=== PATIENT | female | born 1950 | race Two or more races ===

== ENCOUNTER → 2024-05-21 | Outpatient (CLI) | payer OTHER, MEDICAID, SELFPAY ==
--- NOTE | 2024-05-21 14:25 | EKG_ITS ---
[facility] Test Date: 2024-05-21 Pat Name: ROSE BOSS Department: Room: - Gender: Female Medication Coordinator: ANA LILIA : 1950 Requested By: Diego Grey Order Number: [id number] Reading MD: Diego Grey Measurements Intervals Benge Rate: 62 P: 47 ID: [id number] QRS: 46 QRSD: 82 T: 65 QT: 389 QTc: 395 Interpretive Statements SINUS RHYTHM No previous ECG available for comparison /[id number]/[id number]
== END | disposition home or self-care (01) ==
PROVIDERS: Referring Provider Ophthalmology; Visit Provider Ophthalmology
DX: Z01.818 Encounter for other preprocedural examination (principal)
CPT/HCPCS: 93005

== ENCOUNTER → 2024-05-22 | Outpatient (CLI) | payer OTHER, MEDICAID, SELFPAY ==
[2024-05-22 10:11] LABS: Glucose,Fasting 97 mg/dL (74-106)
== END | disposition home or self-care (01) ==
PROVIDERS: PCP Family Medicine; Referring Provider Ophthalmology; Visit Provider Ophthalmology
DX: Z01.818 Encounter for other preprocedural examination (principal)
CPT/HCPCS: 36415; 82947

== ENCOUNTER → 2024-07-02 | Outpatient (CLI) | payer MEDICARE, MEDICAID, SELFPAY ==
--- NOTE | 2024-07-02 11:15 | XR_ITS ---
Examination: Screening digital mammography, bilateral Computer aided detection 3-D breast Tomosynthesis, bilateral Date and time of exam: July 02, 2024 1103 hours Compared to mammograms dating to June 10, 2021 Indication: Screening Technique: Nonmagnified MLO, CC views of the breasts to been obtained, reconstructed from 3-D Tomosynthesis images. R2 computer aided detection program utilized for evaluation of suspicious masses and/or abnormal calcifications. 3-D Tomosynthesis images obtained. Findings: The breasts are heterogeneously dense, which may obscure small masses 8 mm nodule inner slightly upper left breast anterior depth partially indistinct margins Benign calcifications Impression: BI-RADS Category 0: Incomplete: Need additional imaging evaluation 8 mm nodule inner slightly upper left breast anterior depth, recommend follow-up spot tomographic views of this nodule as well as left breast sonography to complete the workup
== END | disposition home or self-care (01) ==
LOC: CDIM 10:53
PROVIDERS: Referring Provider Family Medicine; Visit Provider Family Medicine
DX: Z12.31 Encounter for screening mammogram for malignant neoplasm of breast (principal); N63.22 Unspecified lump in the left breast, upper inner quadrant
CPT/HCPCS: 77063; 77067

== ENCOUNTER → 2024-08-07 | Outpatient (CLI) | payer MEDICARE, MEDICAID, SELFPAY ==
--- NOTE | 2024-08-07 08:00 | XR_ITS ---
Examination: Breast ultrasound, unilateral, left complete Date and time of exam: August 07, 2024 0816 hours INDICATIONS: Mammogram July 02, 2024 8 mm nodule inner upper left breast anterior depth Technique: Real-time hussein scale ultrasonographic imaging performed left breast including all 4 quadrants as well as nipple retroareolar and axillary region. Findings: 8:00 oval mass circumscribed 5 x 5 mm 10:00 cyst 3 x 3 mm IMPRESSION: BI-RADS Category 3: Probably benign findings One additional 6 month left breast sonogram is needed to document stability of 8:00 nodule described above
--- NOTE | 2024-08-07 08:30 | XR_ITS ---
Examination: Diagnostic digital mammography, unilateral, left Computer aided detection 3-D breast Tomosynthesis, unilateral Date and time of exam: August 07, 2024 0837 hours INDICATIONS: Mammogram July 02, 2024 8mm nodule upper left breast anterior depth Technique: Nonmagnified MLO, CC views of the left breast have been obtained, reconstructed from 3-D Tomosynthesis images. R2 computer aided detection program utilized for evaluation of suspicious masses and/or abnormal calcifications. 3-D Tomosynthesis images obtained. Findings: The breast is heterogeneously dense, which may obscure small masses Focal asymmetry remains on the spot compression MLO view upper left breast Impression: BI-RADS category : Probably benign findings One additional 6 month left mammogram follow-up is needed
== END | disposition home or self-care (01) ==
LOC: CDIM 08:03
PROVIDERS: PCP Family Medicine; Referring Provider Family Medicine; Visit Provider Family Medicine
DX: R92.8 Other abnormal and inconclusive findings on diagnostic imaging of breast (principal); N63.23 Unspecified lump in the left breast, lower outer quadrant
CPT/HCPCS: 76641; 77061; 77065; G0279

== ENCOUNTER → 2024-11-06 | Outpatient (CLI) | payer MEDICARE, MEDICAID, SELFPAY ==
[2024-11-06 09:41] LABS: Glucose Estimated Average 126 mg/dL (80-131)
[2024-11-06 09:42] LABS: Basophils # (Auto) 0.1 Thou/mm3 (0.0-0.2); Basophils % (Auto) 1 % (0-2.5); Eosinophils # (Auto) 0.4 Thou/mm3 (0.0-0.5); Eosinophils % (Auto) 7 % (0-10); Hematocrit 36.4 % (36.0-46.0); Hemoglobin 12.6 g/dL (12.0-16.0); Immature Granulocytes % (Auto) 0 % (0-0); Immature Granulocytes Auto 0.02 Thou/mm3 (0.00-0.00); Lymphocytes # (Auto) 2.3 Thou/mm3 (1.0-4.8); Lymphocytes % (Auto) 41 % (10-50); Mean Corpuscular HGB Conc 34.6 g/dl (31.0-37.0); Mean Corpuscular Hemoglobin 31.7 pg (25.0-35.0); Mean Corpuscular Volume 92 fL (80-100); Monocytes # (Auto) 0.5 Thou/mm3 (0.0-0.8); Monocytes % (Auto) 9 % (0-12); Neutrophils # (Auto) 2.4 Thou/mm3 (1.8-7.7); Neutrophils % (Auto) 42 % (37-80); Nucleated Red Blood Cell % 0 /100 WBC (0); Platelet Count 190 Thou/mm3 (140-440); RDW Standard Deviation 41.7 fL (36.4-46.3); Red Blood Count 3.97 Miln/mm3 (4.00-5.20); White Blood Count 5.7 Thou/mm3 (3.6-11.0)
[2024-11-06 09:54] LABS: Alanine Aminotransferase 13 U/L (10-49); Albumin, Serum 4.2 gm/dL (3.4-4.8); Alkaline Phosphatase 62 U/L (46-116); Anion Gap 7 (7-16); Aspartate Amino Transferase 15 U/L (0-34); BUN/Creatinine Ratio 16 Ratio (12-20); Bilirubin,Direct 0.2 mg/dL (0.0-0.3); Bilirubin,Total 0.6 mg/dL (0.3-1.2); Blood Urea Nitrogen 13 mg/dL (9-23); Calcium 8.3 mg/dL (8.3-10.6); Carbon Dioxide 29.7 mMol/L (20.0-31.0); Cardiac Risk Estimate 2.4 RATIO (3.7-5.6); Chloride 101 mMol/L (98-107); Cholesterol 137 mg/dL (132-200); Creatinine (Component) 0.8 mg/dL (0.6-1.3); Glucose 99 mg/dL (74-106); HDL Cholesterol 57 mg/dL (40-60); LDL Cholesterol,Calculated 64 mg/dL (0-130); Osmolality,Calculated 275 (275-295); Potassium 4.1 mMol/L (3.4-5.1); Sodium 138 mMol/L (136-145); Total Protein 7.1 gm/dL (5.7-8.2); Triglycerides 81 mg/dL (30-150); eGFR > 60 See Note
== END | disposition home or self-care (01) ==
PROVIDERS: PCP Family Medicine; Referring Provider Family Medicine; Visit Provider Family Medicine
DX: I10 Essential (primary) hypertension (principal); M51.9 Unspecified thoracic, thoracolumbar and lumbosacral intervertebral disc disorder; E78.5 Hyperlipidemia, unspecified; R73.9 Hyperglycemia, unspecified
CPT/HCPCS: 36415; 80048; 80061; 80076; 83036; 85025

== ENCOUNTER → 2025-02-17 | Outpatient (CLI) | payer MEDICARE, MEDICAID, SELFPAY ==
--- NOTE | 2025-02-17 13:00 | XR_ITS ---
Examination: Breast ultrasound, unilateral, left complete Date and time of exam: February 17, 2025 1227 hours INDICATIONS: Left breast sonogram August 07, 2024 8:00 nodule 5 mm Technique: Real-time hussein scale ultrasonographic imaging performed left breast including all 4 quadrants as well as nipple retroareolar and axillary region. Findings: 10:00 cyst 4 x 3 mm No solid nodules IMPRESSION: BI-RADS Category 2: Benign findings
--- NOTE | 2025-02-17 13:30 | XR_ITS ---
Examination: Diagnostic digital mammography, unilateral, left Computer aided detection 3-D breast Tomosynthesis, unilateral Date and time of exam: February 17, 2025 1339 hours INDICATIONS: Mammogram the ongoing 2024 8mm nodule upper left breast anterior depth Technique: Nonmagnified MLO, CC views of the left breast have been obtained, reconstructed from 3-D Tomosynthesis images. R2 computer aided detection program utilized for evaluation of suspicious masses and/or abnormal calcifications. 3-D Tomosynthesis images obtained. Findings: The breast is heterogeneously dense, which may obscure small masses Benign calcifications. Focal asymmetry does remain slightly above nipple level left breast on the MLO view, 6 mm Impression: BI-RADS category 3: Probably benign findings Recommend continued 6 month follow-up left mammography
== END | disposition home or self-care (01) ==
PROVIDERS: PCP Family Medicine; Referring Provider Family Medicine; Visit Provider Family Medicine
DX: R92.332 Mammographic heterogeneous density, left breast (principal)
CPT/HCPCS: 76641; 77061; 77065; G0279

== ENCOUNTER → 2025-05-25 | Outpatient (CLI) | payer MEDICARE, MEDICAID, SELFPAY ==
[2025-05-25 10:22] LABS: Anion Gap 8 (7-16); BUN/Creatinine Ratio 16 Ratio (12-20); Blood Urea Nitrogen 11 mg/dL (9-23); Calcium 9.1 mg/dL (8.3-10.6); Carbon Dioxide 31.9 mMol/L (20.0-31.0); Chloride 100 mMol/L (98-107); Creatinine (Component) 0.7 mg/dL (0.6-1.3); Glucose 98 mg/dL (74-106); Osmolality,Calculated 278 (275-295); Potassium 4.2 mMol/L (3.4-5.1); Sodium 140 mMol/L (136-145); eGFR > 60 See Note
[2025-05-25 11:08] LABS: Glucose Estimated Average 134 mg/dL (80-131); Hemoglobin A1C 6.3 % Hgb (4.8-6.0)
[2025-05-25 11:27] LABS: Creatinine MALB Rnd Ur 85 mg/dL (30-125); Microalbumin, Random Urine < 3 mg/L (0-300)
== END | disposition home or self-care (01) ==
LOC: COPL 09:28
PROVIDERS: PCP Family Medicine; Referring Provider Family Medicine; Visit Provider Family Medicine
DX: I10 Essential (primary) hypertension (principal); R73.9 Hyperglycemia, unspecified; Z83.3 Family history of diabetes mellitus
CPT/HCPCS: 36415; 80048; 82043; 82570; 83036